=== PATIENT | male | born 2005 | race Hispanic/Latino ===

== ENCOUNTER 2025-06-18 05:29 | Emergency (ER) | payer OTHER, SELFPAY ==
[2025-06-18] MEDS ORDERED: Bacitracin 1 PK ONE (07:02)
== END 2025-06-18 07:13 | disposition home or self-care (01) ==
LOC: ERS 05:29
DX: T23.102A Burn of first degree of left hand, unspecified site, initial encounter (principal); X08.8XXA Exposure to other specified smoke, fire and flames, initial encounter
CPT/HCPCS: 16000; 90471; 90715